=== PATIENT | male | born 2000 | race African-American/Black ===

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

== ENCOUNTER 2019-02-13 16:01 | Emergency (ER) | payer MEDICAID ==
[~2019-02-13] VITALS: Ht 167.6 cm; Wt 68.0 kg
[2019-02-13] MEDS ORDERED: ALBUTEROL (0.083%) 2.5MG/3ML NEB HHN ONE (17:00)
[2019-02-13 18:12] VITALS: BP 120/86
== END 2019-02-13 18:14 | disposition home or self-care (01) ==
LOC: ER 16:01
DX: J06.9 Acute upper respiratory infection, unspecified (principal); S61.551A Open bite of right wrist, initial encounter; R03.0 Elevated blood-pressure reading, without diagnosis of hypertension; Y04.1XXA Assault by human bite, initial encounter; Y93.89 Activity, other specified; Y92.89 Other specified places as the place of occurrence of the external cause; Z23 Encounter for immunization
CPT/HCPCS: 71045; 94640; 99284; J7611

== ENCOUNTER 2019-03-15 23:15 | Emergency (ER) | payer MEDICAID ==
[~2019-03-15] VITALS: Ht 165.1 cm; Wt 55.0 kg
[2019-03-15 23:44] VITALS: BP 119/68
== END 2019-03-16 00:32 | disposition home or self-care (01) ==
LOC: ER 23:51
DX: Z48.02 Encounter for removal of sutures (principal)
CPT/HCPCS: 99281; Z7610

== ENCOUNTER 2023-09-05 06:53 | Emergency (ER) | payer SELFPAY ==
[~2023-09-05] VITALS: Ht 167.6 cm; Wt 64.0 kg
[2023-09-05 07:10] VITALS: BP 138/91; RESP 16; TEMP 98.3; O2SAT 98
[2023-09-05 07:14] VITALS: PULSE 65
[2023-09-05] MEDS ORDERED: IBUPROFEN 600MG TABLET PO ONE (08:45)
[2023-09-05] MEDS ORDERED: IBUP-2029 MT (09:14)
== END 2023-09-05 09:24 | disposition home or self-care (01) ==
LOC: ER 06:53
DX: S60.212A Contusion of left wrist, initial encounter (principal); J45.909 Unspecified asthma, uncomplicated; F12.90 Cannabis use, unspecified, uncomplicated; X58.XXXA Exposure to other specified factors, initial encounter; Y93.89 Activity, other specified; Y92.89 Other specified places as the place of occurrence of the external cause; Y99.8 Other external cause status
CPT/HCPCS: 73110; 73130; 99284